=== PATIENT | male | born 1980 | race Two or more races ===

== ENCOUNTER 2017-07-01 10:11 | Inpatient (IN) | payer OTHER ==
[2017-06-25 11:13] VITALS: BMI 27.3
[2017-07-01] MEDS ORDERED: CEFAZOLIN 2 GM in DEXTROSE 5%-WATER - 100 ML IVPB ONE (10:26)
[2017-07-01] MEDS ORDERED: oxyCODONE HCL 10 MG SUSTAINED ACTING TABLET PO STA (10:26)
[2017-07-01] MEDS ORDERED: LIDOCAINE 1%/EPI 1:100000 (20 ML MULTI DOSE VIAL) ONE (11:01)
[2017-07-01] MEDS ORDERED: THROMBIN (BOVINE) 5,000 UNIT VIAL TP ONE (11:01)
[2017-07-01] MEDS ORDERED: GUM MASTIC/STORAX/MSAL/ALCOHOL 1 DRP DROPSBTL MC ONE (11:01)
[2017-07-01] MEDS ORDERED: BUPIVACAINE HCL/PF 2.5 MG/ML - 30 ML VIAL IJ ONE (11:01)
--- NOTE | 2017-07-01 11:23 | HP ---
History & Physical Update - History History: No Change - Physical Physical: No Change - Assessment Assessment: No Change - Plan Plan: No Change
[2017-07-01] MEDS ORDERED: MIDAZOLAM HCL 2 MG/2 ML SINGLE DOSE VIAL ONE ×2 (11:54→13:18)
[2017-07-01] MEDS ORDERED: ceFAZolin SODIUM 1 GM VIAL ONE (12:19)
[2017-07-01] MEDS ORDERED: LIDOCAINE 1%/EPI 1:100000 (50 ML MULTI DOSE VIAL) INF ONE (13:02)
[2017-07-01] MEDS ORDERED: oxyCODONE HCL 5 MG TABLET PO PRN ×3 (14:03→14:14)
[2017-07-01] MEDS ORDERED: PROMETHAZINE HCL 25 MG/1 ML VIAL IVPUSH PRN (14:03)
[2017-07-01] MEDS ORDERED: ONDANSETRON 4 MG/2 ML VIAL IVPUSH PRN ×2 (14:03→14:20)
--- NOTE | 2017-07-01 14:13 | OP ---
Operative Note - Note: Operative Date: 07/01/17 Pre-Operative Diagnosis: L5/S1 Spondylolithesis Operation: L5/S1 TLIF Post-Operative Diagnosis: Same as Pre-op Surgeon: Bebeto Waddell Technician Automated Equipment: Gianni Gutiérrez Anesthesiologist/CYBER SOFTWARE ENGINEER: Vasiliy Dennis Anesthesia: Spinal Estimated Blood Loss (mls): 30 Fluid Volume Replaced (mls): 1,100 Operative Report Dictated: Yes
[2017-07-01] MEDS ORDERED: ONDANSETRON 4 MG/2 ML VIAL IVPB PRN (14:14)
[2017-07-01] MEDS ORDERED: CYCLOBENZAPRINE HCL 10 MG TABLET (FP) PO PRN (14:14)
[2017-07-01] MEDS ORDERED: ACETAMINOPHEN 1000 MG/100 ML VIAL (NON FORMULARY) IVPB PRN (14:14)
--- NOTE | 2017-07-01 14:14 | SURG ---
Surgery Senior Consumer Insights Consultant Note Senior Consumer Insights Consultant: Gianni Gutiérrez PA-C Date of Service: 07/01/17 Diagnosis: L5/S1 Spondylolithesis Procedure: Posterior lumbar decompression/fusion/instrumentation, Transforaminal lumbar interbody fusion L5/S1 with allograft and neuromonitoring I was present for the entirety of the operative procedure. For further detail, please refer to operative report. Visit type - Case Type Case Type: Scheduled Admission - New patient This patient is new to me today: Yes Date on this admission: 07/01/17
[2017-07-01] MEDS ORDERED: ACETAMINOPHEN 325 MG TABLET (FP) PO SCH (14:15)
[2017-07-01] MEDS ORDERED: LACTATED RINGERS SOLUTION 1,000 ML IV SCH ×2 (14:15)
[2017-07-01] MEDS ORDERED: diazePAM 2 MG TABLET PO ONE (14:18)
[2017-07-01] MEDS: KETOROLAC TROMETHAMINE 30 MG/1 ML VIAL IVPUSH PRN ×2 (14:20→21:30)
[2017-07-01] MEDS ORDERED: diazePAM 5 MG TABLET ONE (14:26)
[2017-07-01] MEDS: traMADol HCL 50 MG TABLET PO SCH ×2 (14:49→18:10)
--- NOTE | 2017-07-01 15:15 | OP ---
DATE OF OPERATION: 07/01/2017 PREOPERATIVE DIAGNOSIS: L5-S1 spondylolisthesis. POSTOPERATIVE DIAGNOSIS: L5-S1 spondylolisthesis. PROCEDURE PERFORMED: 1. Transforaminal lumbar interbody fusion. 2. Placement of prosthetic cage. 3. Hemilaminectomy L5-S1. 4. Placement of instrumentation. SURGEON: Bebeto Waddell MD DIVER PUMPER: BRIAN Vilchis ESTIMATED BLOOD LOSS: 50 mL. IV FLUIDS: Per Anesthesia. COMPLICATIONS: There were none. ANESTHESIA: Spinal. DISPOSITION: Patient brought to the PACU in stable condition. INDICATIONS: The patient is a 37-year-old gentleman who has been suffering from pain from his back down his legs for many months now. He had been through an exhaustive course of treatment for this which included medications, physical therapy, as well as injections. Unfortunately, his pain continued to persist despite all this. At this point, risks, benefits, and alternatives were discussed, and the patient consented to surgery. OPERATIVE NOTE: Patient was brought to the operating room by the Anesthesia staff. After appropriate patient identification was performed, spinal anesthesia was performed. The patient was able to position himself prone on the OR table. The C-arm was brought in. The L5-S1 pedicles were marked off. Lidocaine, 10 mL, with epinephrine was injected into the back at this time. His back was prepped and draped in a sterile manner. At this point, a time-out was completed. Incisions were made bilaterally over the L5-S1 pedicles. Dissection was carried down to the fascia. The C-arm was brought in. Under C-arm guidance, trocars were advanced into both the L5 and S1 pedicles. Through the trocars, wires were inserted. Over the wires, tap was performed and screws were inserted. On the right-hand side, retractor blades were set up to expose the L5-S1 facet joint. The facet joint was removed. The disc was entered using a series of pituitary and Kerrison rongeurs and curettes. The discectomy was completed. The endplates were decorticated at this time. A size 8 cage filled with bone graft was placed in. Tulip heads were placed over the screws. A naty was measured and placed in. Caps were applied. Compression was applied. On the left-hand side, a naty was measured and placed in. Caps were placed on, and compression was applied. All extra instrumentation was removed at this time. AP and lateral x-rays confirmed the instrumentation to be in good position. All bleeding was well controlled at this time. The fascia was closed with a No. 1 Vicryl suture. Exparel was injected. The subcutaneous tissues were closed with 2-0 Vicryl suture. Skin was closed with 3-0 Monocryl suture. Dermabond was applied. Steri-Strips were applied. Sterile dressings applied. Patient was placed supine on the OR bed and brought to the PACU in stable condition. Alison FAJARDO/[id number]
[2017-07-01] MEDS: CEFAZOLIN 2 GM/D5W 50 ML IVPB SCH (18:10)
[2017-07-01] MEDS: oxyCODONE HCL 5 MG TABLET PO PRN (19:41)
[2017-07-01] MEDS: ACETAMINOPHEN 325 MG TABLET (FP) PO SCH (21:26)
[2017-07-01] MEDS ORDERED: oxyCODONE HCL 10 MG SUSTAINED ACTING TABLET PO SCH (22:00)
[2017-07-01] MEDS ORDERED: PATIENT'S OWN MEDICATION (NON-FORMULARY) (Metformin Hcl [Metformin Hcl Er] 1,000 MG) PO SCH (22:00)
[2017-07-01] MEDS ORDERED: ATORVASTATIN CA 10 MG TABLET (FP) PO SCH (22:00)
[2017-07-02] MEDS: traMADol HCL 50 MG TABLET PO SCH ×2 (00:22→06:24)
[2017-07-02] MEDS: CEFAZOLIN 2 GM/D5W 50 ML IVPB SCH ×2 (01:27→09:14)
[2017-07-02] MEDS: ACETAMINOPHEN 325 MG TABLET (FP) PO SCH ×2 (04:03→09:13)
[2017-07-02 06:36] VITALS: BP 102/51; PULSE 91; TEMP 98.8
[2017-07-02] MEDS: oxyCODONE HCL 5 MG TABLET PO PRN (09:11)
--- NOTE | 2017-07-02 09:34 | PN ---
Progress Note (short form) - Note Progress Note: Anesthesia postop note. POD#1, S/p Lumbar fusion L4-5. Patient seen and examined. VSS. Pain well controlled. No post anesthesia complications.Signed off.
[2017-07-02] MEDS ORDERED: OMEGA-3 ACID ETHYL ESTERS (FATTY-ACIDS) 1 GM CAPSULE (FP) PO SCH (10:00)
[2017-07-02] MEDS ORDERED: PATIENT'S OWN MEDICATION (NON-FORMULARY) (Lisinopril [Zestril] 2.5 MG) PO SCH (10:00)
[2017-07-02] MEDS ORDERED: LISINOPRIL 5 MG TABLET (FP) PO SCH (10:00)
[2017-07-02] MEDS ORDERED: PT OWN MED DRAWER 7, Y5N ONE (10:26)
--- NOTE | 2017-07-02 11:54 | DS ---
Physical Exam: SUBJECTIVE: Patient seen and examined, he has pain to his incision. NO longer having pain in his right extremity. OBJECTIVE: Vital Signs Temperature 98.8 F 07/02/17 06:00 Pulse Rate 91 H 07/02/17 06:00 Respiratory Rate 18 07/02/17 06:00 Blood Pressure 102/51 07/02/17 06:00 O2 Sat by Pulse Oximetry (%) 97 07/02/17 08:27 PHYSICAL EXAM GENERAL: The patient is awake, alert, and fully oriented, in no acute distress. LUNGS: Breath sounds equal, clear to auscultation bilaterally, no wheezes, no crackles. HEART: Regular rate and rhythm. ABDOMEN: Soft, nontender, nondistended, normoactive bowel sounds. EXTREMITIES: 2+ pulses, warm, well-perfused, no edema. NEUROLOGICAL: Speech normal, 5/5 dorsi/plantar/EHL flexion b/l. BACK: dressing changed. Inc c/d/i. No evidnece of hematoma/ecchymosis PSYCH: Normal mood, normal affect. SKIN: Warm, dry, normal turgor. LABS CBC,CMP POC Glucometer 123 UNITS (()) 07/02/17 06:11 HOSPITAL COURSE: Date of Admission:07/01/17 Date of Discharge: 07/02/17 The patient was admitted to the Med-Surg Unit after an elective repair of their lumbar spondylolisthesis. Now, s/p L5-S1. The day of surgery, the patient ambulated the hallways with assistance. Narcotic and non-narcotic pain management control was achieved with an oral and IV approach. An xray was obtained and confirmed hardware placement at (level of ), no fractures or dislocations. Terri-operative IV ABX were administered. DVT prophylaxis was achieved with SCDs and early ambulation. The patient ambulated with Physical Therapy and no services were recommended upon discharge. Narcotic scripts and or muscle relaxants were checked with [facility] BEVEL OPERATOR prior to escibe. The discharge instructions and an oral pain management plan were reviewed with the patient. All questions answered. Above plan discussed with Dr. Waddell and agreed. Minutes to complete discharge: 30 <Yesica Joseph - Last Filed: 07/02/17 11:54> Physical Exam: SUBJECTIVE: Patient seen and examined OBJECTIVE: Vital Signs Temperature 98.8 F 07/02/17 06:00 Pulse Rate 91 H 07/02/17 06:00 Respiratory Rate 18 07/02/17 06:00 Blood Pressure 102/51 07/02/17 06:00 O2 Sat by Pulse Oximetry (%) 97 07/02/17 08:27 PHYSICAL EXAM GENERAL: The patient is awake, alert, and fully oriented, in no acute distress. HEAD: Normal with no signs of trauma. EYES: PERRL, extraocular movements intact, sclera anicteric, conjunctiva clear. ENT: Ears normal, nares patent, oropharynx clear without exudates, moist mucous membranes. NECK: Trachea midline, full range of motion, supple. LUNGS: Breath sounds equal, clear to auscultation bilaterally, no wheezes, no crackles, no accessory muscle use. HEART: Regular rate and rhythm, S1, S2 without murmur, rub or gallop. ABDOMEN: Soft, nontender, nondistended, normoactive bowel sounds, no guarding, no rebound, no hepatosplenomegaly, no masses. EXTREMITIES: 2+ pulses, warm, well-perfused, no edema. NEUROLOGICAL: Cranial nerves II through XII grossly intact. Normal speech, gait not observed. PSYCH: Normal mood, normal affect. SKIN: Warm, dry, normal turgor, no rashes or lesions noted. LABS CBC,CMP POC Glucometer 123 UNITS (()) 07/02/17 06:11 HOSPITAL COURSE: Date of Admission:07/01/17 Date of Discharge: 07/08/17 The patient was admitted to the Med-Surg Unit after an elective repair of their L5-S1 spondylolisthesis. The day of surgery, the patient ambulated the hallways with assistance. Narcotic and non-narcotic pain management control was achieved with an oral and IV approach. POD #1, the surgical drain was removed fully intact and without incident. An xray was obtained and confirmed hardware placement at L5-S1, no fractures or dislocations. Terri-operative IV ABX were administered. DVT prophylaxis was achieved with SCDs and early ambulation. The patient ambulated with Physical Therapy and no services were recommended upon discharge. Narcotic scripts and or muscle relaxants were checked with [place] BEVEL OPERATOR prior to escibe. The discharge instructions and an oral pain management plan were reviewed with the patient. All questions answered. Above plan discussed with Dr. Waddell and agreed. Patient seen and examined Agree with above D/C Planning <Bebeto Waddell - Last Filed: 07/08/17 15:40> Visit type - Case Type Case Type: Scheduled Admission - Emergency Emergency Visit: No - New patient This patient is new to me today: Yes Date on this admission: 07/02/17 - Critical Care Critical Care patient: No <Yesica Joseph - Last Filed: 07/02/17 11:54>
== END 2017-07-02 11:03 | disposition home or self-care (01) | DRG 304 ==
LOC: FM/S 10:11 → EDSTATUS 11:15 → FM/S 15:36
PROVIDERS: ADMIT Orthopaedic Surgery Orthopaedic Surgery of the Spine; ATTEND Orthopaedic Surgery Orthopaedic Surgery of the Spine
PROC: 0SB40ZZ Excision of Lumbosacral Disc, Open Approach (ICD-10-PCS; 2017-07-01)
PROC: 0SG30AJ Fusion of Lumbosacral Joint with Interbody Fusion Device, Posterior Approach, Anterior Column, Open Approach (ICD-10-PCS; principal; 2017-07-01 12:37)
DX: M43.17 Spondylolisthesis, lumbosacral region (principal)
CPT/HCPCS: 72100-TC; 76001-TC; 94760; 97116-GP; 97161-GP